=== PATIENT | female | born 1975 | race Caucasian/White ===

== ENCOUNTER 2017-02-05 18:22 | Emergency (ER) | payer MEDICAID ==
[2017-02-05] MEDS ORDERED: Albuterol/Ipratropium 3.0-0.5 MG/3 ML Neb Soln NEB ONE (18:43)
[2017-02-05] MEDS ORDERED: cefTRIAXone 1 GM Vial IM ONE (18:43)
--- NOTE | 2017-02-05 18:48 | EDM.PDOC ---
ED HPI GENERAL MEDICAL PROBLEM - General Chief Complaint: Respiratory Problem Stated Complaint: SORE THROAT Time Seen by Provider: 02/05/17 18:27 Source of Information: Reports: Patient History Limitations: Reports: No Limitations - History of Present Illness INITIAL COMMENTS - FREE TEXT/NARRATIVE: PT STATES SHE DEVELOPED COUGH WITH YELLOW SPUTUM AND CHEST CONGESTION 2 DAYS AGO AND BECOMING WORSE. FEELS LIKE SHE HAS HAD FEVER ON/OFF. DENIES , N /V, SOB, CP. Onset: Gradual Onset Date: 02/03/17 Severity: Mild Associated Symptoms: Reports: Cough, Fever/Chills - Related Data Allergies Allergy/AdvReac Type Severity Reaction Status Date / Time amoxicillin Allergy Rash Verified 02/05/17 18:54 hydrocodone Allergy Rash Verified 02/05/17 18:54 Sulfa (Sulfonamide Allergy Cannot Verified 02/05/17 18:54 Antibiotics) Remember Home Meds: Home Meds Albuterol [Proventil HFA] 6.7 gm INH Q4H #1 inhaler 02/05/17 [Rx] Azithromycin [Zithromax] 500 mg PO DAILY #6 tablet 02/05/17 [Rx] ED ROS GENERAL - Review of Systems Review Of Systems: ROS reveals no pertinent complaints other than HPI. Constitutional: Reports: Fever HEENT: Reports: Throat Pain Respiratory: Reports: Wheezing, Cough, Sputum Cardiovascular: Reports: No Symptoms Endocrine: Reports: No Symptoms GI/Abdominal: Reports: No Symptoms : Reports: No Symptoms Musculoskeletal: Reports: No Symptoms Skin: Reports: No Symptoms Neurological: Reports: No Symptoms Psychiatric: Reports: No Symptoms Hematologic/Lymphatic: Reports: No Symptoms Immunologic: Reports: No Symptoms ED EXAM, GENERAL - Physical Exam Exam: See Below Exam Limited By: No Limitations General Appearance: Alert, WD/WN, No Apparent Distress Eye Exam: Bilateral Eye: Normal Inspection Ears: Normal External Exam, Normal Canal, Normal TMs Nose: Normal Inspection, Normal Mucosa, No Blood Throat/Mouth: Normal Inspection, Normal Oropharynx, No Airway Compromise Head: Atraumatic, Normocephalic Neck: Normal Inspection, Supple. No: Lymphadenopathy (L), Lymphadenopathy (R) Respiratory/Chest: No Respiratory Distress, Rhonchi (APICALLY / CLEARS WITH COUGH) Cardiovascular: Regular Rate, Rhythm, No Murmur GI/Abdominal: Normal Bowel Sounds, Soft, Non-Tender Extremities: Normal Inspection, No Pedal Edema Neurological: Alert, Oriented, Normal Cognition Psychiatric: Normal Affect, Normal Mood Skin Exam: Warm, Dry, Intact, Normal Color, No Rash Lymphatic: No Adenopathy Course - Re-Assessments/Exams Free Text/Narrative Re-Assessment/Exam: 02/05/17 18:48 PT AFEBRILE, NONTOXIC APPEARING, VSS, ROCEPHIN AND ALB/ATRO NEB GIVEN Departure - Departure Time of Disposition: 18:49 Disposition: Home, Self-Care 01 Condition: Good Clinical Impression: Bronchitis - Discharge Information Instructions: Acute Bronchitis, [id number] Referrals: PCP,Not In Area [Primary Care Provider] - Forms: ED Department Discharge Additional Instructions: FOLLOW UP WITH PCP IN NEXT 2-3 DAYS. RETURN TO ER SOONER IF SYMPTOMS CONTINUE - Assessment/Plan Assessment:: BRONCHITIS Plan: FOLLOW UP AT CLINIC IN NEXT 2-3 DAYS
[2017-02-06 01:58] VITALS: BP 128/80
== END 2017-02-05 19:10 | disposition home or self-care (01) ==
LOC: KA.ED 18:22
DX: J40 Bronchitis, not specified as acute or chronic (principal); Z79.899 Other long term (current) drug therapy
CPT/HCPCS: 94640; 96372; 99283; J0696

== ENCOUNTER 2017-08-01 12:00 | Emergency (ER) | payer MEDICAID ==
[2017-08-01] MEDS ORDERED: GI Cocktail 45 ML BOTTLE PO ONE (12:21)
--- NOTE | 2017-08-01 12:28 | EDM.PDOC ---
ED HPI GENERAL MEDICAL PROBLEM - General Chief Complaint: General Stated Complaint: HEARTBURN,CHEST PAIN Time Seen by Provider: 08/01/17 12:21 Source of Information: Reports: Patient History Limitations: Reports: No Limitations - History of Present Illness INITIAL COMMENTS - FREE TEXT/NARRATIVE: Patient is a 41-year-old female who presents to the emergency department this afternoon with a complaint of acid reflux and chest pain. Patient states it's been going on for several weeks and she is been taking Tums for mild relief. Patient states that this is worse when she is lying flat and after eating. Patient denies pain associated with activity, fever, family history of early cardiac issues, nausea, vomiting, abdominal pain, blood in stool, or possibility of . Onset: Gradual Duration: Week(s): Location: Reports: Chest, Abdomen Quality: Reports: Burning Severity: Mild Improves with: Reports: Medication Worsens with: Reports: Eating, Other (Lying flat) Context: Denies: Activity, Exercise, Lifting, Sick Contact, Trauma Associated Symptoms: Reports: No Other Symptoms Treatments SHOT EXAMINER: Reports: Other Medication(s) (tums) - Related Data Allergies Allergy/AdvReac Type Severity Reaction Status Date / Time amoxicillin Allergy Rash Verified 08/01/17 12:32 hydrocodone Allergy Rash Verified 08/01/17 12:32 Sulfa (Sulfonamide Allergy Cannot Verified 08/01/17 12:32 Antibiotics) Remember Home Meds: Home Meds Albuterol [Proventil HFA] 6.7 gm INH Q4H #1 inhaler 02/05/17 [Rx] Ranitidine HCl [Zantac] 150 mg PO DAILY #30 tablet 08/01/17 [Rx] Social & Family History - Tobacco Use Smoking Status *Q: Current Every Day Smoker Years of Tobacco use: 25 Packs/Tins Daily: 0.5 Second Hand Smoke Exposure: Yes - Recreational Drug Use Recreational Drug Use: No ED ROS GENERAL - Review of Systems Review Of Systems: ROS reveals no pertinent complaints other than HPI. Constitutional: Reports: No Symptoms HEENT: Reports: No Symptoms, Other (Burning sensation in throat after eating, and while lying flat) Respiratory: Reports: No Symptoms Cardiovascular: Reports: No Symptoms. Denies: Dyspnea on Exertion, Palpitations , Syncope Endocrine: Reports: No Symptoms GI/Abdominal: Denies: Abdominal Pain (Epigastric at times), Black Stool, Bloody Stool, Nausea, Vomiting : Reports: No Symptoms Musculoskeletal: Reports: No Symptoms Skin: Reports: No Symptoms Neurological: Reports: No Symptoms Psychiatric: Reports: No Symptoms Hematologic/Lymphatic: Reports: No Symptoms Immunologic: Reports: No Symptoms ED EXAM, GI/ABD - Physical Exam Exam: See Below Exam Limited By: No Limitations General Appearance: Alert, WD/WN, No Apparent Distress Nose: Normal Inspection, Normal Mucosa, No Blood Throat/Mouth: Normal Inspection, Normal Oropharynx, No Airway Compromise Head: Atraumatic, Normocephalic Neck: Normal Inspection, Supple Respiratory/Chest: No Respiratory Distress, Lungs Clear, Normal Breath Sounds, Chest Non-Tender Cardiovascular: Regular Rate, Rhythm, No Murmur GI/Abdominal Exam: Normal Bowel Sounds, Soft, Non-Tender, No Organomegaly, No Distention, No Abnormal Bruit, No Mass Back Exam: Normal Inspection. No: CVA Tenderness (L), CVA Tenderness (R) Extremities: Normal Inspection, No Pedal Edema Neurological: Alert, Oriented, Normal Cognition Psychiatric: Normal Affect, Normal Mood Skin Exam: Warm, Dry, Intact, Normal Color, No Rash Lymphatic: No Adenopathy EKG INTERPRETATION EKG Date: 08/01/17 Time: 12:05 Rhythm: NSR Rate (Beats/Min): 70 [place]: Normal P-Wave: Present QRS: Normal ST-T: Normal QT: Normal Comparison: NA - No Prior EKG Course - Orders/Labs/Meds Orders: Active Orders 24 hr Category Date Time Status EKG Documentation Completion [RC] ASDIRECTED Care 08/01/17 12:22 Ordered GI Cocktail Med 08/01/17 12:21 Once 45 ml PO ONETIME ONE EKG 12 Lead [EK] Routine Ther 08/01/17 12:21 Ordered - Re-Assessments/Exams Free Text/Narrative Re-Assessment/Exam: 08/01/17 12:30 Patient afebrile, nontoxic appearing, vital signs stable. Patient given GI cocktail and symptoms subsided. Patient will be given Zantac 150 over the counter instructions and follow-up with PCP in 2-3 days. Departure - Departure Time of Disposition: 12:32 Disposition: Home, Self-Care 01 Condition: Good Clinical Impression: GERD (gastroesophageal reflux disease) Qualifiers: Esophagitis presence: esophagitis presence not specified Qualified Code(s): K21.9 - Gastro-esophageal reflux disease without esophagitis - Discharge Information Instructions: Food Choices for Gastroesophageal Reflux Disease, Adult, Easy-to- Read, Gastroesophageal Reflux Disease, Adult, [id number] Referrals: Reta Saeed MD [Primary Care Provider] - Forms: ED Department Discharge Additional Instructions: Follow-up with Dr. Harrison in next 2-3 days. Return to the emergency department sooner if symptoms continue or worsen. - My Orders Last 24 Hours: My Active Orders 08/01/17 12:21 GI Cocktail 45 ml PO ONETIME ONE EKG 12 Lead [EK] Routine 08/01/17 12:22 EKG Documentation Completion [RC] ASDIRECTED - Assessment/Plan Last 24 Hours: My Active Orders 08/01/17 12:21 GI Cocktail 45 ml PO ONETIME ONE EKG 12 Lead [EK] Routine 08/01/17 12:22 EKG Documentation Completion [RC] ASDIRECTED Assessment:: GERD Plan: Follow-up with PCP in 2-3 days
[2017-08-01 12:31] VITALS: BP 130/77
== END 2017-08-01 12:50 | disposition home or self-care (01) ==
LOC: KA.ED 12:00
DX: K21.9 Gastro-esophageal reflux disease without esophagitis (principal); R07.9 Chest pain, unspecified; F17.210 Nicotine dependence, cigarettes, uncomplicated; Z88.1 Allergy status to other antibiotic agents; Z88.5 Allergy status to narcotic agent; Z88.2 Allergy status to sulfonamides; Z79.899 Other long term (current) drug therapy
CPT/HCPCS: 93005; 99284; A9270

== ENCOUNTER 2017-10-06 08:42 | Day surgery (SDC) | payer MEDICAID ==
[~2017-10-06 08:42] MED LIST: Midazolam 1 MG/ML 2 ML SDV ONE; Propofol 200 MG/20 ML SDV ONE; fentaNYL 100 MCG/2 ML SDV ONE
[2017-10-06] MEDS ORDERED: Sodium Chloride 0.9% 5 ML Syringe FLUSH PRN (09:00)
[2017-10-06] MEDS: Lactated Ringers 1,000 ML IV SCH (09:13)
--- NOTE | 2017-10-06 11:00 | PCM.PN ---
- General Info Date of Service: 10/06/17 - Review of Systems Systems Review Comment:: 42-year-old female referred for upper endoscopy. She has a several year history of upper abdominal and chest pain. She describes this as a burning acid reflux type pain. She also states that acid sometimes comes up into her mouth. She has tried multiple medications in the past. Currently she is taking a generic form of omeprazole. I have reviewed the proposed upper endoscopy with the patient. She agrees to proceed accepting risks. - Patient Data Vitals - Most Recent: Last Vital Signs Temp 97.6 F 10/06/17 09:13 Pulse 70 10/06/17 09:13 Resp 16 10/06/17 09:13 BP 136/72 10/06/17 09:13 Pulse Ox 98 10/06/17 09:13 Weight - Most Recent: 78.925 kg Med Orders - Current: Current Medications Lactated Ringer's (Ringers, Lactated) 1,000 mls @ 50 mls/hr IV ASDIRECTED SALVADOR Last Admin: 10/06/17 09:13 Dose: 50 mls/hr Sodium Chloride (Syrex Flush) 5 ml FLUSH Q8HR PRN PRN Reason: Keep Vein Open Discontinued Medications Fentanyl (Sublimaze) Confirm Administered Dose 100 mcg .ROUTE .STK-MED ONE Stop: 10/06/17 08:07 Midazolam HCl (Versed 1 Mg/Ml) Confirm Administered Dose 4 mg .ROUTE .STK-MED ONE Stop: 10/06/17 08:07 Propofol (Diprivan 20 Ml) Confirm Administered Dose 200 mg .ROUTE .STK-MED ONE Stop: 10/06/17 08:07 - Problem List Review Problem List Initiated/Reviewed/Updated: Yes - My Orders Last 24 Hours: My Active Orders 10/06/17 09:00 Peripheral IV Care [RC] . DIRECTED HCG QUALITATIVE,URINE [URCHEM] Routine Lactated Ringers [Ringers, Lactated] 1,000 ml IV ASDIRECTED Sodium Chloride 0.9% [Syrex Flush] 5 ml FLUSH Q8HR PRN Peripheral IV Insertion Adult [OM.PC] Routine 10/06/17 09:30 Patient to Empty Bladder [RC] ASDIRECTED 10/06/17 09:45 Verify Patient Consent Obtain [RC] ASDIRECTED 10/06/17 Breakfast Nothing Per Oral Diet [DIET] - Assessment Assessment:: Acid reflux symptoms - Plan Plan:: Upper endoscopy
[2017-10-06] MEDS ORDERED: Propofol 200 MG/20 ML SDV IV ONE (11:12)
[2017-10-06] MEDS ORDERED: Midazolam 1 MG/ML 2 ML SDV IV ONE (11:12)
[2017-10-06] MEDS ORDERED: fentaNYL 100 MCG/2 ML SDV IV ONE (11:12)
--- NOTE | 2017-10-06 11:42 | PCM.OPNOTE ---
- General Post-Op/Procedure Note Date of Surgery/Procedure: 10/06/17 Operative Procedure(s): EGD with biopsy Findings: Mild Gastritis in lower stomach Pre Op Diagnosis: GERD Post-Op Diagnosis: Gastritis Anesthesia Technique: MAC Primary Surgeon: Jay Larios Pathology: Biopsies of Antrum and GE Jct Output, Urine Amount: 0 EBL in mLs: 3 Complications: None Condition: Good
[2017-10-06 16:10] VITALS: BP 119/65
--- NOTE | 2017-10-06 22:14 | PROC ---
PROVIDER: Jay Larios MD REFERRING PHYSICIAN: TAZ Alvarado. PRE-PROCEDURE DIAGNOSIS: Gastroesophageal reflux disease. POST-PROCEDURE DIAGNOSIS: Gastritis. PROCEDURE PERFORMED: Esophagogastroduodenoscopy with biopsy. INDICATIONS FOR SURGERY: This 42-year-old female has been having symptoms of burning pain in her chest and upper abdomen. This has not been well controlled with PPI agents, and she is referred for an upper endoscopy. FINDINGS: The patient's esophagus does not appear to be acutely inflamed or otherwise abnormal. In her stomach, there is a mild degree of inflammation in the antrum near the pylorus, but no ulcers are seen. Her duodenum and the remainder of her stomach appeared normal. PROCEDURE: The patient was taken to the operating room. She was given intravenous sedation, and the esophagus was intubated under direct visualization with the Olympus gastroscope. This was carefully advanced under direct visualization through the esophagus, stomach, and into the duodenum, where examination to the fourth portion was performed. After carefully examining the duodenum, the scope was withdrawn back into the stomach where full examination including a retroflexed examination of the fundus was carried out. Random biopsies of the antrum were taken to rule out H. pylori. The GE junction was then carefully examined. This appeared relatively normal and did not show gross evidence of severe inflammation, but biopsies of the GE junction were taken because of the patient's symptoms. The scope was then withdrawn and removed. The patient was then taken from the operating room in a satisfactory condition. ESTIMATED BLOOD LOSS: 3 mL. COMPLICATIONS: None. PROGNOSIS: Good. /[id number]/MODL
== END 2017-10-06 13:10 | disposition home or self-care (01) ==
LOC: KA.SDS 08:42
PROVIDERS: ATTEND Surgery
DX: K29.70 Gastritis, unspecified, without bleeding (principal); K21.0 Gastro-esophageal reflux disease with esophagitis; R07.9 Chest pain, unspecified; F17.200 Nicotine dependence, unspecified, uncomplicated; Z88.1 Allergy status to other antibiotic agents; Z88.2 Allergy status to sulfonamides; Z88.5 Allergy status to narcotic agent; Z98.51 Tubal ligation status; Z98.890 Other specified postprocedural states
CPT/HCPCS: J2250; J2704; J3010; J7120

== ENCOUNTER 2020-01-16 08:10 | Emergency (ER) | payer BC, MEDICAID ==
[2020-01-16] MEDS: Sodium Chloride 0.9% 10 ML Syringe FLUSH PRN (09:12)
[2020-01-16] MEDS: Sodium Chloride 0.9% 1,000 ML IV ONE (09:12)
--- NOTE | 2020-01-16 09:17 | EDM.PDOC ---
ED HPI GENERAL MEDICAL PROBLEM - General Chief Complaint: General Stated Complaint: dizzy, light headed, shakey Time Seen by Provider: 01/16/20 08:57 Source of Information: Reports: Patient History Limitations: Reports: No Limitations - History of Present Illness INITIAL COMMENTS - FREE TEXT/NARRATIVE: 44 YO WF PRESENTS TO ER COMPLAINING OF DIZZINESS AND NEAR SYNCOPE WHICH OCCURRED PRIOR TO ARRIVAL. PT REPORTS SHE WAS AT WORK AND BECAME DIZZY. PT REPORTS SITTING DOWN AND CONTINUED TO FEEL WEAK BUT DENIES LOSS OF CONSCIOUSNESS. PT REPORTS ASSOCIATED DIAPHORESIS AND NAUSEA. PT DENIES CHEST PAIN OR SHORTNESS OF BREATH. PT REPORTS SHE HAD COFFEE, EXCEDRIN AND SODA POP BUT NOTHING TO EAT THIS AM. PT REPORTS SHE'S HAD EPISODES OF THIS IN THE PAST WITH ASSOCIATED ARM NUMBNESS WHICH HAS BEEN TRANSIENT IN NATURE. PT DENIES FEVER/CHILLS, NO COUGH/CONGESTION AND NO SICK CONTACTS. Onset: Today Duration: Improving, Resolved Prior to Arrival Location: Reports: Generalized Severity: Mild Improves with: Reports: Rest Worsens with: Reports: None Associated Symptoms: Reports: Diaphoresis, Loss of Appetite, Nausea/Vomiting. Denies: Confusion, Chest Pain, Cough, cough w sputum, Fever/Chills, Headaches, S hortness of Breath Right Epigastric Pain Score (Numeric/FACES): 6 - Related Data Allergies Allergy/AdvReac Type Severity Reaction Status Date / Time amoxicillin Allergy Rash Verified 10/06/17 08:57 hydrocodone Allergy Rash Verified 10/06/17 08:57 Sulfa (Sulfonamide Allergy Cannot Verified 10/06/17 08:57 Antibiotics) Remember Home Meds: Home Meds RX: Omeprazole 40 mg PO BIDAC 09/30/17 [History] RX: atorvaSTATin [Lipitor] 5 mg PO DAILY 10/06/17 [History] RX: traMADol [Ultram] 50 mg PO DAILY 10/06/17 [History] Past Medical History HEENT History: Reports: Impaired Vision Cardiovascular History: Reports: High Cholesterol Respiratory History: Reports: Bronchitis, Recurrent Gastrointestinal History: Reports: Bowel Obstruction, Other (See Below) Other Gastrointestinal History: Heartburn. CARE SPECIALIST History: Reports: Endometrial Ablation, , Other (See Below) Other CARE SPECIALIST History: Tubes lasered. Oncologic (Cancer) History: Reports: Cervix - Infectious Disease History Infectious Disease History: Reports: Chicken Pox - Past Surgical History HEENT Surgical History: Reports: Adenoidectomy, Tonsillectomy GI Surgical History: Reports: Appendectomy, Colon, Colonoscopy Musculoskeletal Surgical History: Reports: Shoulder Surgery Social & Family History - Family History Family Medical History: Noncontributory - Tobacco Use Smoking Status *Q: Current Every Day Smoker Years of Tobacco use: 20 Packs/Tins Daily: 0.5 - Caffeine Use Caffeine Use: Reports: Coffee, Soda - Alcohol Use Days Per Week of Alcohol Use: 1 Number of Drinks Per Day: 8 Total Drinks Per Week: 8 - Recreational Drug Use Recreational Drug Use: No ED ROS GENERAL - Review of Systems Review Of Systems: See Below Constitutional: Reports: Malaise HEENT: Reports: No Symptoms Respiratory: Reports: No Symptoms Cardiovascular: Reports: Lightheadedness Endocrine: Reports: No Symptoms GI/Abdominal: Reports: Nausea : Reports: No Symptoms Musculoskeletal: Reports: No Symptoms Skin: Reports: No Symptoms Neurological: Reports: Dizziness Psychiatric: Reports: No Symptoms Hematologic/Lymphatic: Reports: No Symptoms Immunologic: Reports: No Symptoms ED EXAM, GENERAL - Physical Exam Exam: See Below Exam Limited By: No Limitations General Appearance: Alert, WD/WN, No Apparent Distress Eye Exam: Bilateral Eye: PERRL Head: Atraumatic, Normocephalic Neck: Normal Inspection, Supple, Non-Tender, Full Range of Motion Respiratory/Chest: No Respiratory Distress, Lungs Clear, Normal Breath Sounds, No Accessory Muscle Use, Chest Non-Tender Cardiovascular: Normal Peripheral Pulses, Regular Rate, Rhythm, No Edema, No Ga llop, No JVD, No Murmur, No Rub GI/Abdominal: Normal Bowel Sounds, Soft, Non-Tender, No Organomegaly, No Distention, No Abnormal Bruit, No Mass Back Exam: Normal Inspection, Full Range of Motion, NT Extremities: Normal Inspection, Normal Range of Motion, Non-Tender, Normal Capillary Refill, No Pedal Edema Neurological: Alert, Oriented, CN II-XII Intact, Normal Cognition, Normal Gait, Normal Reflexes, No Motor/Sensory Deficits Psychiatric: Normal Affect, Normal Mood Skin Exam: Warm, Dry, Intact, Normal Color, No Rash Lymphatic: No Adenopathy EKG INTERPRETATION EKG Date: 01/16/20 Time: 09:00 Rhythm: NSR Rate (Beats/Min): 75 [place]: Normal P-Wave: Present QRS: RBBB ST-T: Normal QT: Normal Course - Vital Signs Last Recorded V/S: Last Vital Signs Temp 36.3 C 01/16/20 08:17 Pulse 70 01/16/20 09:45 Resp 16 01/16/20 09:45 BP 149/90 H 01/16/20 09:45 Pulse Ox 98 01/16/20 09:45 Orthostatic Blood Pressure [ 146/102 Standing] Orthostatic Blood Pressure [ 161/96 Sitting] - Orders/Labs/Meds Orders: Active Orders 24 hr Category Date Time Status EKG Documentation Completion [RC] ASDIRECTED Care 01/16/20 08:37 Active Peripheral IV Care [RC] . DIRECTED Care 01/16/20 08:36 Active Sodium Chloride 0.9% [Saline Flush] Med 01/16/20 08:36 Active 10 ml FLUSH Q8HR PRN Peripheral IV Insertion Adult [OM.PC] Routine Oth 01/16/20 08:36 Ordered EKG 12 Lead [EK] Stat Ther 01/16/20 08:36 Ordered Medication Orders Sodium Chloride (Saline Flush) 10 ml FLUSH Q8HR PRN PRN Reason: keep vein open Last Admin: 01/16/20 09:12 Dose: 10 ml Documented by: AGATHA Labs: Laboratory Tests 01/16/20 01/16/20 Range/Units 08:36 08:45 WBC 12.07 H (5.00-10.00) 10^3/uL RBC 5.28 (3.80-5.50) 10^6/uL Hgb 17.0 H (12.0-16.0) g/dL Hct 50.4 H (37.0-47.0) % MCV 95.5 H (82.0-92.0) fL MCH 32.2 H (27.0-31.0) pg MCHC 33.7 (32.0-36.0) g/dL RDW 13.2 (11.5-14.5) % Plt Count 213 (150-400) 10^3/uL MPV 11.5 H (7.4-10.4) fL Immature Gran % (Auto) 0.2 (0.0-5.0) % Neut % (Auto) 70.1 H (50.0-70.0) % Lymph % (Auto) 23.2 (20.0-40.0) % [place] % (Auto) 5.3 (2.0-8.0) % Eos % (Auto) 0.7 L (1.0-3.0) % Baso % (Auto) 0.5 (0.0-1.0) % Neut # (Auto) 8.46 H (2.50-7.00) 10^3/uL Lymph # (Auto) 2.80 (1.00-4.00) 10^3/uL [place] # (Auto) 0.64 (0.10-0.80) 10^3/uL Eos # (Auto) 0.08 L (0.10-0.30) 10^3/uL Baso # (Auto) 0.06 (0.00-0.10) 10^3/uL Immature Gran # (Auto) 0.03 (0.00-0.50) 10^3/uL Sodium 143 (136-145) mmol/L Potassium 4.3 (3.3-5.3) mmol/L Chloride 106 (98-115) mmol/L Carbon Dioxide 27.2 (21.0-32.0) mmol/L Anion Gap 14.1 (5-15) mmol/L BUN 7 (6-25) mg/dL Creatinine 0.80 (0.51-1.17) mg/dL Est Cr Clr Drug Dosing 81.60 mL/min Estimated GFR (MDRD) > 60 mL/min Glucose 89 (75 - 99) mg/dL Calcium 8.9 (8.7-10.3) mg/dL Total Bilirubin 0.8 (0.2-1.0) mg/dL AST 22 (15-37) U/L ALT 41 (12-78) U/L Alkaline Phosphatase 90 (46-116) IU/L Creatine Kinase 81 (26-276) U/L CK-MB (CK-2) 1.30 (0.00-4.30) ng/mL Troponin I 0.06 (0.00-0.070) ng/mL Total Protein 7.3 (6.4-8.2) g/dL Albumin 4.02 (3.00-4.80) g/dL Lipase 123 (73-393) U/L Meds: Medications Generic Name Dose Route Start Last Admin Trade Name Freq PRN Reason Stop Dose Admin Sodium Chloride 10 ml 01/16/20 08:36 01/16/20 09:12 Saline Flush FLUSH 10 ml Q8HR PRN Administration keep vein open Discontinued Medications Generic Name Dose Route Start Last Admin Trade Name Freq PRN Reason Stop Dose Admin Sodium Chloride 1,000 mls @ 999 mls/hr 01/16/20 08:36 01/16/20 09:12 Normal Saline IV 01/16/20 09:36 999 mls/hr .BOLUS ONE Administration - Radiology Interpretation Free Text/Narrative:: CXR-NAD Departure - Departure Time of Disposition: 10:07 Disposition: Home, Self-Care 01 Condition: Good Clinical Impression: Dehydration - Discharge Information Instructions: Dehydration, Adult, [id number] Referrals: Ngoc Winn PA-C [Primary Care Provider] - Forms: ED Department Discharge Additional Instructions: 1. DISCHARGE HOME 2. INCREASE FLUIDS 3. DECREASE CAFFEINE CONSUMPTION 4. FOLLOW UP WITH PCP THIS WEEK FOR FURTHER EVALUATION 5. RETURN TO ER FOR WORSENING SYMPTOMS Sepsis Event Note (ED) - Evaluation Sepsis Screening Result: No Definite Risk - Focused Exam Vital Signs: Vital Signs Temp Pulse Resp BP Pulse Ox 01/16/20 09:45 70 16 149/90 H 98 01/16/20 09:30 78 24 H 148/83 H 98 01/16/20 09:15 78 14 136/86 97 01/16/20 09:10 84 159/97 H 01/16/20 08:30 84 22 H 144/83 H 98 01/16/20 08:17 36.3 C 98 18 156/98 H 98 - My Orders Last 24 Hours: My Active Orders 01/16/20 08:36 Peripheral IV Care [RC] . DIRECTED Sodium Chloride 0.9% [Saline Flush] 10 ml FLUSH Q8HR PRN Peripheral IV Insertion Adult [OM.PC] Routine EKG 12 Lead [EK] Stat 01/16/20 08:37 EKG Documentation Completion [RC] ASDIRECTED - Assessment/Plan Last 24 Hours: My Active Orders 01/16/20 08:36 Peripheral IV Care [RC] . DIRECTED Sodium Chloride 0.9% [Saline Flush] 10 ml FLUSH Q8HR PRN Peripheral IV Insertion Adult [OM.PC] Routine EKG 12 Lead [EK] Stat 01/16/20 08:37 EKG Documentation Completion [RC] ASDIRECTED Assessment:: 1. DEHYDRATION Plan: 1. DISCHARGE HOME 2. INCREASE FLUIDS 3. DECREASE CAFFEINE CONSUMPTION 4. FOLLOW UP WITH PCP THIS WEEK FOR FURTHER EVALUATION 5. RETURN TO ER FOR WORSENING SYMPTOMS
--- NOTE | 2020-01-16 09:25 | CR ---
[id number] RAD/RAD Chest PA And Lateral EXAM: FRONTAL AND LATERAL CHEST INDICATION: RIGHT UPPER EPIGASTRIC PAIN. COMPARISON: None. DISCUSSION: The lungs are borderline hyperinflated, but clear. The heart is normal in size. IMPRESSION: 1. Negative exam. Rajinder Langford MD 01/16/20 0925 Thank you for allowing us to participate in the care of your patient.
[2020-01-16 09:50] VITALS: BP 149/90; PULSE 70
[2020-01-16 09:58] LABS: ANION GAP 14.1 mmol/L (5-15); CHLORIDE,CL 106 mmol/L (98-115); SODIUM,NA 143 mmol/L (136-145)
== END 2020-01-16 10:45 | disposition home or self-care (01) ==
LOC: KA.ED 08:10
DX: E86.0 Dehydration (principal); I45.10 Unspecified right bundle-branch block; E78.00 Pure hypercholesterolemia, unspecified; F17.210 Nicotine dependence, cigarettes, uncomplicated; Z88.1 Allergy status to other antibiotic agents; Z88.2 Allergy status to sulfonamides; Z88.5 Allergy status to narcotic agent; Z79.899 Other long term (current) drug therapy; Z90.89 Acquired absence of other organs
CPT/HCPCS: 71046; 80053; 82550; 82553; 83690; 84484; 85025; 93005; 96360; 99284; 99284-25; J7030

== ENCOUNTER 2020-01-16 18:23 | Emergency (ER) | payer BC ==
[2020-01-16] MEDS: Sodium Chloride 0.9% 1,000 ML IV ONE (18:47)
--- NOTE | 2020-01-16 18:48 | EDM.PDOC ---
ED HPI GENERAL MEDICAL PROBLEM - General Chief Complaint: General Stated Complaint: VERY HOT, DIZZY Time Seen by Provider: 01/16/20 18:47 Source of Information: Reports: Patient - History of Present Illness INITIAL COMMENTS - FREE TEXT/NARRATIVE: Was seen in the emergency department this morning with a complete cardiac work- up as well as electrolytes showing a concentration component likely dehydration. Received 1 L of fluid felt better and was discharged home with instructions for follow-up this coming , 19 January 2020. Rested at home sipping fluids drinking water, Gatorade, and also chicken noodle soup. This evening experienced another episode of sweating with dizziness. She drove herself to the emergency department for evaluation and has had 2 or 3 smaller episodes since then. When discussing components and her menstrual irregularities over the past 6 years since a endometrial scraping, she states "I was sweating in places I did not know I had". Onset: Today - Related Data Allergies Allergy/AdvReac Type Severity Reaction Status Date / Time amoxicillin Allergy Rash Verified 01/16/20 18:31 hydrocodone Allergy Rash Verified 01/16/20 18:31 Sulfa (Sulfonamide Allergy Cannot Verified 01/16/20 18:31 Antibiotics) Remember Home Meds: Home Meds Acetaminophen/Diphenhydramine [Tylenol Pm Ex-Strength Caplet] 1 each PO BEDTIME 01/16/20 [History] Doxylamine Succinate [Unisom Sleep Aid] 25 mg PO BEDTIME PRN 01/16/20 [History] Past Medical History HEENT History: Reports: Impaired Vision Cardiovascular History: Reports: High Cholesterol Respiratory History: Reports: Bronchitis, Recurrent Gastrointestinal History: Reports: Bowel Obstruction, Other (See Below) Other Gastrointestinal History: Heartburn. 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 Endocrine/Metabolic History: Reports: None Immunologic History: Reports: None Oncologic (Cancer) History: Reports: Cervix - Infectious Disease History Infectious Disease History: Reports: Chicken Pox - Past Surgical History HEENT Surgical History: Reports: Adenoidectomy, Tonsillectomy GI Surgical History: Reports: Appendectomy, Colon, Colonoscopy Musculoskeletal Surgical History: Reports: Shoulder Surgery - Past Imaging History Past Imaging History: Reports: Ultrasound, Xray Social & Family History - Family History Family Medical History: Noncontributory - Tobacco Use Smoking Status *Q: Current Every Day Smoker Tobacco Use Within Last Twelve Months: Cigarettes Packs/Tins Daily: 0.5 Smoking Cessation Information Provided To Patient: No - Caffeine Use Caffeine Use: Reports: Coffee, Soda - Alcohol Use Alcohol Use History: Yes Days Per Week of Alcohol Use: 2 Alcohol Use in Last Twelve Months: Yes Alcohol Use Frequency: Socially ED ROS GENERAL - Review of Systems Review Of Systems: Comprehensive ROS is negative, except as noted in HPI. ED EXAM, GENERAL - Physical Exam Exam: See Below Free Text/Narrative:: Alert oriented x3 in no acute distress. HEENT is negative discharge or deformity. PERRLA no icterus no injection extraocular motion is intact. There is no involvement of the auditory canals or tympanic membranes. [place] moist mucous membranes with no erythema nor exudate. Neck is soft supple no lymphadenopathy, no nuchal rigidity, no carotid bruit auscultated. Thorax is clear throughout with no wheezes nor crackles noted. Cardiac is S1-S2 I do not appreciate any murmur. Abdomen is soft bowel sounds are present no tenderness is noted, no hepatosplenomegaly. rectal is deferred She moves her extremities about with no discomfort radial pulse correlates with apical heart rate. There is no edema to the lower extremities. She was initially using her phone as I entered the room has remained totally eddie ropriate and is uncertain when questioned about hormonal perimenopausal stating she has not had regular menstrual cycle for 6 years since she had "endometrial scraping of her uterus." General Appearance: Alert, WD/WN Course - Vital Signs Last Recorded V/S: Last Vital Signs Temp 36.8 C 01/16/20 18:32 Pulse 77 01/16/20 19:17 Resp 20 01/16/20 19:17 BP 153/96 H 01/16/20 19:17 Pulse Ox 96 01/16/20 19:17 - Orders/Labs/Meds Orders: Active Orders 24 hr Category Date Time Status Peripheral IV Care [RC] . DIRECTED Care 01/16/20 18:39 Active Sodium Chloride 0.9% [Saline Flush] Med 01/16/20 18:39 Active 10 ml FLUSH Q8HR PRN Peripheral IV Insertion Adult [OM.PC] Routine Oth 01/16/20 18:39 Ordered Medication Orders Sodium Chloride (Saline Flush) 10 ml FLUSH Q8HR PRN PRN Reason: keep vein open Last Admin: 01/16/20 18:52 Dose: 10 ml Documented by: AGATHA Labs: Laboratory Tests 01/16/20 01/16/20 01/16/20 Range/Units 19:40 19:40 19:45 WBC 10.79 H (5.00-10.00) 10^3/uL RBC 4.54 (3.80-5.50) 10^6/uL Hgb 14.9 D (12.0-16.0) g/dL Hct 43.6 (37.0-47.0) % MCV 96.0 H (82.0-92.0) fL MCH 32.8 H (27.0-31.0) pg MCHC 34.2 (32.0-36.0) g/dL RDW 13.2 (11.5-14.5) % Plt Count 189 (150-400) 10^3/uL MPV 10.0 (7.4-10.4) fL Immature Gran % (Auto) 0.1 (0.0-5.0) % Neut % (Auto) 62.0 (50.0-70.0) % Lymph % (Auto) 30.2 (20.0-40.0) % [place] % (Auto) 6.9 (2.0-8.0) % Eos % (Auto) 0.4 L (1.0-3.0) % Baso % (Auto) 0.4 (0.0-1.0) % Neut # (Auto) 6.70 (2.50-7.00) 10^3/uL Lymph # (Auto) 3.26 (1.00-4.00) 10^3/uL [place] # (Auto) 0.74 (0.10-0.80) 10^3/uL Eos # (Auto) 0.04 L (0.10-0.30) 10^3/uL Baso # (Auto) 0.04 (0.00-0.10) 10^3/uL Immature Gran # (Auto) 0.01 (0.00-0.50) 10^3/uL Troponin I 0.07 (0.00-0.070) ng/mL TSH, Ultra Sensitive 2.720 (0.340-4.820) uIU/mL Specimen Type Urincc Urine Color Light yellow (YELLOW) Urine Appearance Clear (CLEAR) Urine pH 7.0 (5.0-9.0) Ur Specific [place] 1.015 (1.005-1.030) Urine Protein Negative (NEGATIVE) mg/dL Urine Glucose (UA) Negative (NEGATIVE) mg/dL Urine Ketones Negative (NEGATIVE) mg/dL Urine Occult Blood Negative (NEGATIVE) Urine Nitrite Negative (NEGATIVE) Urine Bilirubin Negative (NEGATIVE) Urine Urobilinogen 0.2 (0.2-1.0) E.U./dL Ur Leukocyte Esterase Negative (NEGATIVE) Meds: Medications Generic Name Dose Route Start Last Admin Trade Name Freq PRN Reason Stop Dose Admin Sodium Chloride 10 ml 01/16/20 18:39 01/16/20 18:52 Saline Flush FLUSH 10 ml Q8HR PRN Administration keep vein open Discontinued Medications Generic Name Dose Route Start Last Admin Trade Name Freq PRN Reason Stop Dose Admin Sodium Chloride 1,000 mls @ 999 mls/hr 01/16/20 18:39 01/16/20 18:47 Normal Saline IV 01/16/20 19:39 999 mls/hr .BOLUS ONE Administration Lorazepam 0.5 mg 01/16/20 20:44 Ativan PO 01/16/20 20:45 ONETIME ONE Departure - Departure Time of Disposition: 20:50 Disposition: Home, Self-Care 01 Condition: Good Clinical Impression: Hot flashes, Dizziness and giddiness, Meghann-menopause - Discharge Information *PRESCRIPTION DRUG MONITORING PROGRAM REVIEWED*: Not Applicable *COPY OF PRESCRIPTION DRUG MONITORING REPORT IN PATIENT GEGE: Not Applicable Referrals: Ngoc Winn PA-C [Primary Care Provider] - Forms: ED Department Discharge Additional Instructions: I BELIEVE YOU ARE EXPERIENCING "HOT FLASHES" Perimenopausal. Your labs are all negative or showing improvement from this am. The extra fluid you have received by IV or by drinking will make up for the sweating/hor flashes. Call the clinic in the am to see Ngoc as soon as possible to complete hormonal testing and possible treatment options. Sepsis Event Note (ED) - Evaluation Sepsis Screening Result: No Definite Risk - Focused Exam Vital Signs: Vital Signs Temp Pulse Resp BP Pulse Ox 01/16/20 19:17 77 20 153/96 H 96 01/16/20 18:54 84 18 130/76 97 01/16/20 18:32 36.8 C 88 18 151/95 H 97 - Problem List & Annotations (1) Hot flashes SNOMED Code(s): 291075150 Code(s): R23.2 - FLUSHING Status: Acute Priority: Medium Current Visit: Yes (2) Dizziness and giddiness SNOMED Code(s): 381332755 Code(s): R42 - DIZZINESS AND GIDDINESS Status: Acute Priority: Medium Current Visit: Yes (3) Meghann-menopause SNOMED Code(s): 673291049205814 Code(s): N95.1 - MENOPAUSAL AND FEMALE CLIMACTERIC STATES Status: Acute Current Visit: Yes - Problem List Review Problem List Initiated/Reviewed/Updated: Yes - My Orders Last 24 Hours: My Active Orders 01/16/20 18:39 Peripheral IV Care [RC] . DIRECTED Sodium Chloride 0.9% [Saline Flush] 10 ml FLUSH Q8HR PRN Peripheral IV Insertion Adult [OM.PC] Routine - Assessment/Plan Last 24 Hours: My Active Orders 01/16/20 18:39 Peripheral IV Care [RC] . DIRECTED Sodium Chloride 0.9% [Saline Flush] 10 ml FLUSH Q8HR PRN Peripheral IV Insertion Adult [OM.PC] Routine Plan: I BELIEVE YOU ARE EXPERIENCING "HOT FLASHES" Perimenopausal. Your labs are all negative or showing improvement from this am. The extra fluid you have received by IV or by drinking will make up for the sweating/hor flashes. Call the clinic in the am to see Ngoc as soon as possible to complete hormonal testing and possible treatment options.
[2020-01-16] MEDS: Sodium Chloride 0.9% 10 ML Syringe FLUSH PRN (18:52)
[2020-01-16] MEDS: LORazepam 0.5 MG Tab PO ONE (21:11)
[2020-01-16 21:13] VITALS: BP 140/72; PULSE 80
== END 2020-01-16 20:55 | disposition home or self-care (01) ==
LOC: KA.ED 18:23
DX: N95.9 Unspecified menopausal and perimenopausal disorder (principal); R42 Dizziness and giddiness; F17.210 Nicotine dependence, cigarettes, uncomplicated; Z88.1 Allergy status to other antibiotic agents; Z88.2 Allergy status to sulfonamides; Z88.5 Allergy status to narcotic agent; Z90.89 Acquired absence of other organs
CPT/HCPCS: 36415; 81003; 84443; 84484; 85025; 96360; 99284; 99284-25; J7030

== ENCOUNTER 2020-01-17 13:57 | Emergency (ER) | payer BC ==
[2020-01-17 14:14] VITALS: BP 149/93; PULSE 98
--- NOTE | 2020-01-17 14:16 | EDM.PDOC ---
ED HPI GENERAL MEDICAL PROBLEM - General Chief Complaint: General Stated Complaint: HBP,ALCOHOL DETOX? Time Seen by Provider: 01/17/20 14:16 Source of Information: Reports: Patient - History of Present Illness INITIAL COMMENTS - FREE TEXT/NARRATIVE: Speaks of potential, according to her friend in [place], of needing alcohol detox. Was drinking last week but during her visits yesterday to the emergency department as well as clinic today did not acknowledge any alcohol intake since the past Thursday. This was not a topic of conversation or acknowledgment by her during her in-depth work-up x2 yesterday. Dates that hot flash was significant after leaving the clinic for her evaluation and medication for perimenopausal symptoms. Onset: Today, Sudden Duration: Minutes: Location: Reports: Generalized Quality: Reports: Same as Previous Episode Severity: Moderate Improves with: Reports: None Worsens with: Reports: None Chest Pain Score (Numeric/FACES): 2 - Related Data Allergies Allergy/AdvReac Type Severity Reaction Status Date / Time amoxicillin Allergy Rash Verified 01/16/20 18:31 hydrocodone Allergy Rash Verified 01/16/20 18:31 Sulfa (Sulfonamide Allergy Cannot Verified 01/16/20 18:31 Antibiotics) Remember Home Meds: Home Meds Acetaminophen/Diphenhydramine [Tylenol Pm Ex-Strength Caplet] 1 each PO BEDTIME 01/16/20 [History] Doxylamine Succinate [Unisom Sleep Aid] 25 mg PO BEDTIME PRN 01/16/20 [History] LORazepam [Lorazepam] 0.5 mg PO TID 5 Days #15 tablet 01/17/20 [Rx] Past Medical History HEENT History: Reports: Impaired Vision Cardiovascular History: Reports: High Cholesterol Respiratory History: Reports: Bronchitis, Recurrent Gastrointestinal History: Reports: Bowel Obstruction, Other (See Below) Other Gastrointestinal History: Heartburn. 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 Endocrine/Metabolic History: Reports: None Immunologic History: Reports: None Oncologic (Cancer) History: Reports: Cervix - Infectious Disease History Infectious Disease History: Reports: Chicken Pox - Past Surgical History HEENT Surgical History: Reports: Adenoidectomy, Tonsillectomy GI Surgical History: Reports: Appendectomy, Colon, Colonoscopy Musculoskeletal Surgical History: Reports: Shoulder Surgery - Past Imaging History Past Imaging History: Reports: Ultrasound, Xray Social & Family History - Family History Family Medical History: Noncontributory - Tobacco Use Smoking Status *Q: Current Every Day Smoker - Caffeine Use Caffeine Use: Reports: Coffee, Soda ED ROS GENERAL - Review of Systems Review Of Systems: Comprehensive ROS is negative, except as noted in HPI. ED EXAM, GENERAL - Physical Exam Exam: See Below General Appearance: Alert, WD/WN, No Apparent Distress Ears: Normal External Exam, Normal Canal, Hearing Grossly Normal, Normal TMs Nose: Normal Inspection, Normal Mucosa Throat/Mouth: Normal Inspection, Normal Lips Head: Atraumatic, Normocephalic Neck: Normal Inspection, Supple, Non-Tender, Full Range of Motion Respiratory/Chest: No Respiratory Distress, Lungs Clear Cardiovascular: Normal Peripheral Pulses, Regular Rate, Rhythm GI/Abdominal: Soft (Female) Exam: Deferred Rectal (Female) Exam: Deferred Back Exam: Full Range of Motion Neurological: Alert, Oriented, CN II-XII Intact, Normal Cognition, Normal Gait, No Motor/Sensory Deficits Psychiatric: Normal Affect, Normal Mood Skin Exam: Warm, Dry, Intact, Normal Color, No Rash Lymphatic: No Adenopathy Course - Vital Signs Last Recorded V/S: Last Vital Signs Temp 36.4 C 01/17/20 14:06 Pulse 98 01/17/20 14:06 Resp 20 01/17/20 14:06 BP 149/93 H 01/17/20 14:06 Pulse Ox 98 01/17/20 14:06 Departure - Departure Time of Disposition: 14:35 Disposition: Home, Self-Care 01 Condition: Good Clinical Impression: Meghann-menopause, Anxiety about health, Hot flashes - Discharge Information *PRESCRIPTION DRUG MONITORING PROGRAM REVIEWED*: Yes *COPY OF PRESCRIPTION DRUG MONITORING REPORT IN PATIENT GEGE: Yes Prescriptions: LORazepam [Lorazepam] 0.5 mg PO TID 5 Days #15 tablet Referrals: Ngoc Winn PA-C [Primary Care Provider] - Forms: ED Department Discharge Additional Instructions: Lorazepam 0.5 to be taken once 3 times daily for anxiety and help with hot flashes until you are rechecked with Ngoc on Thursday, 20 January 2020. Make sure you maintain good fluid intake and take your medications as prescribed. Medication you were given in the clinic today will take possibly 4 weeks to fully benefit your hot flashes. Call clinic if concerns otherwise as scheduled for follow-up on Thursday. Sepsis Event Note (ED) - Evaluation Sepsis Screening Result: No Definite Risk - Focused Exam Vital Signs: Vital Signs Temp Pulse Resp BP Pulse Ox 01/17/20 14:06 36.4 C 98 20 149/93 H 98 - Problem List & Annotations (1) Anxiety about health SNOMED Code(s): 344765036 Code(s): F41.8 - OTHER SPECIFIED ANXIETY DISORDERS Status: Acute Priority: High (2) Hot flashes SNOMED Code(s): 333942885 Code(s): R23.2 - FLUSHING Status: Acute Priority: High (3) Meghann-menopause SNOMED Code(s): 633085289448882 Code(s): N95.1 - MENOPAUSAL AND FEMALE CLIMACTERIC STATES Status: Acute Priority: High - Problem List Review Problem List Initiated/Reviewed/Updated: Yes - Assessment/Plan Plan: Lorazepam 0.5 to be taken once 3 times daily for anxiety and help with hot flashes until you are rechecked with gNoc on Thursday, 20 January 2020. Make sure you maintain good fluid intake and take your medications as prescribed. Medication you were given in the clinic today will take possibly 4 weeks to fully benefit your hot flashes. Call clinic if concerns otherwise as scheduled for follow-up on Thursday.
== END 2020-01-17 14:45 | disposition home or self-care (01) ==
LOC: KA.ED 13:57
DX: F41.9 Anxiety disorder, unspecified (principal); N95.1 Menopausal and female climacteric states; F17.200 Nicotine dependence, unspecified, uncomplicated; Z88.1 Allergy status to other antibiotic agents; Z88.5 Allergy status to narcotic agent; Z88.2 Allergy status to sulfonamides; Z79.899 Other long term (current) drug therapy; Z90.49 Acquired absence of other specified parts of digestive tract
CPT/HCPCS: 99283; 99284

== ENCOUNTER 2021-08-03 10:35 | Emergency (ER) | payer BC, OTHER ==
[2021-08-03 15:45] VITALS: BP 136/79; PULSE 98
== END 2021-08-03 12:30 | disposition home or self-care (01) ==
LOC: KA.ED 10:35
DX: S63.641A Sprain of metacarpophalangeal joint of right thumb, initial encounter (principal); Z88.0 Allergy status to penicillin; Z88.5 Allergy status to narcotic agent; Z88.2 Allergy status to sulfonamides; W19.XXXA Unspecified fall, initial encounter; Y99.0 Civilian activity done for income or pay
CPT/HCPCS: 73140-F5; 99283